=== PATIENT | female | born 1975 | race Caucasian/White ===

== ENCOUNTER 2025-07-24 09:24 | Emergency (ER) | payer BC, SELFPAY ==
--- OUTSIDE RECORDS SUMMARY | 2025-06-12 14:00 | XMS_ITS | Encounter Summary ---
Author Organization [facility] er Address [address] [place] [address] Care Team Providers Care Physical Fitness Trainer Name Role Phone Adela Chan APRN Primary Care Provider Encounter Details DateTypeDepartmentCare Team (Latest Contact Info)Srtzqykrwwu65/05/2025 2:00 PM CSTClinical Support SE Immunization [address] [place], [place] [address] Travel advice encounter (Primary Dx) Social History Tobacco UseTypesPacks/DayYears UsedDateSmoking Tobacco: NeverSmokeless Tobacco: NeverAlcohol UseStandard Drinks/WeekCommentsYes0 (1 standard drink = 0.6 oz pure alcohol)B1300 Health LiteracyAnswerDate RecordedHow often do you need to have someone help you when you read instructions, pamphlets, or other written material from your doctor or pharmacy?Never01/23/2025HC UtilitiesAnswerDate RecordedIn the past 12 months has the [employer], gas, oil, or water [employer] threatened to shut off services in your home?No01/23/2025Humiliation, Afraid, Rape, and Kick questionnaireAnswerDate RecordedWithin the last year, have you been afraid of your partner or ex-partner?No01/23/2025Within the last year, have you been humiliated or emotionally abused in other ways by your partner or ex-partner?No01/23/2025Within the last year, have you been kicked, hit, slapped, or otherwise physically hurt by your partner or ex-partner?No01/23/2025Within the last year, have you been raped or forced to have any kind of sexual activity by your partner or ex-partner?No01/23/2025Social Connection and Isolation Panel AnswerDate RecordedIn a typical week, how many times do you talk on the phone with family, friends, or neighbors?Once a week01/23/2025How often do you get together with friends or relatives?Once a week01/23/2025How often do you attend religious or moravian services?1 to 4 times per year01/23/2025Do you belong to any clubs or organizations such as religious groups, unions, [employer] or athletic rufina ups, or school groups?No01/23/2025How often do you attend meetings of the clubs or organizations you belong to?Patient /18/2025re you , , , , never , or living with a partner? 01/23/2025UDIT-CAnswerDate RecordedQ1: How often do you have a drink containing alcohol?Monthly or less01/23/2025Q2: How many drinks containing alcohol do you have on a typical day when you are drinking?1 or Q3: How often do you have six or more drinks on one occasion?Never01/23/2025Overall Financial Resource Strain (CARDIA)AnswerDate RecordedHow hard is it for you to pay for the very basics like food, housing, medical care, and heating?Not hard at all 01/23/2025PHQ-2AnswerDate RecordedPHQ-9 Total [id number] [place] of Occupational Health - Occupational Stress QuestionnaireAnswerDate RecordedDo you feel stress - tense, restless, nervous, or anxious, or unable to sleep at night because yourmind is troubled all the time - these days?To some extent 01/23/2025Exercise Vital SignAnswerDate RecordedOn average, how many days per week do you engage in moderate to strenuous exercise (like a brisk walk)?2 days 01/23/2025On average, how many minutes do you engage in exercise at this level? 20 min01/23/2025Hunger Vital SignAnswerDate RecordedWithin the past 12 months, you worried that your food would run out before you got the money to buymore. Never true01/23/2025Within the past 12 months, the food you bought just didn't last and you didn't have money to get more.Never true01/23/2025PRAPARE - TransportationAnswerDate RecordedIn the past 12 months, has lack of transportation kept you from medical appointments or from getting medications?No 01/23/2025In the past 12 months, has lack of transportation kept you from meetings, work, or from getting things needed for daily living?No01/23/2025 Housing Stability Vital SignAnswerDate RecordedIn the last 12 months, was there a time when you were not able to pay the mortgage or rent on time?No01/23/2025In the past 12 months, how many times have you moved where you were living?0 01/23/2025t any time in the past 12 months, were you homeless or living in a usp (including now)?No01/23/2025CommentsNoSex and Gender Information ValueDate RecordedSex Assigned at BirthNot on fileLegal GtvGbozwj86/07/2018 7:59 PM CDTGender IdentityNot on fileSexual OrientationNot on filedocumented as of this encounter Progress Notes * Lorelei Schrader RN - 06/12/2025 2:00 PM CST Patient ID: Emilia Alcaraz is a 49 y.o. female. Subjective: Patient comes into the office today for travel consultation. Patients travel destination is [facility] for business. Date of Departure: 06/22/2025 for a length of stay of 7days. Past Medical History: Heart Disease: positive Kidney Disease: negative Lung Disease: positive Diabetes: negative Stomach/GI Disease: negative Mental Health Issuesnegative Fainted/Reacted from Previous Injection: negative Patient is Immunocompromised: No Past Surgical History: Surgical procedure within last 5 years: No Allergies/Adverse Reactions: Seasonal Medications: Current Medications[1] Patient wants traveler???s diarrhea medication: Yes. Counseling given and prescription for azithromycin was [facility]. Patient wants traveler???s anti-malaria medication: Yes Counseling given and prescription for Malarone was [facility]. : Currently /planning to become : no Currently : no Immunizations: The Following immunizations are recommended and agreed to by the patient: Hepatitis A, Influenza, and Typhoid Risk and benefits discussed. VIS sheets given to patient. Safety: [facility] Pantograph Operator reviewed and [facility] health information given to patient. Also, reviewedwater and food precautions while traveling, including prober hand-washing. Reviewed use of appropriate clothing, insect repellent, and sunscreen. Plan: Patient was administered the following vaccines: Hepatitis A, Influenza, and Typhoid Patient verbalized understanding of the information given. Patient was not given the CDC International Certificate of Vaccination. Patient is to call the Immunization nurse with questions or concerns. [1] Current Outpatient Medications: albuterol HFA (Ventolin HFA) 108 (90 Base) MCG/ACT inhaler, Inhale 2 puffs every 4 (four) hours if needed for wheezing or shortness of breath On file., Disp: 8 g, Rfl: 11 amLODIPine (Norvasc) 5 MG tablet, Take 1 tablet (5 mg total) by mouth every night On file, Disp: 90tablet, Rfl: 3 atorvastatin (LIPITOR) 40 MG tablet, TAKE 1 TABLET EVERY NIGHT AT BEDTIME. On file., Disp: 90 tablet, Rfl: 3 atovaquone-proguanil (Malarone) 250-100 MG per tablet, 1 tab a day, same time of day. Start 1-2 days before travel, daily while in malarial area, and for 7 days after leaving area, Disp: 16 tablet, Rfl: 0 azithromycin (Zithromax Z-Domingo) 250 MG tablet, Take 2 tabs (500 mg) by mouth today, then 1 tab (250 mg) daily for 4 days., Disp: 6 tablet, Rfl: 0 azithromycin (Zithromax) 500 MG tablet, Take 1 tab a day , for 3 days ,at the onset of more than 4 diarrheal stools per day or fever, blood, pus mucous in stools. Stop if diarrhea stops., Disp: 3 tablet, Rfl: 0 Cetirizine HCl 10 MG capsule, Take 10 mg by mouth 1 (one) time each day On file., Disp: 90 capsule,Rfl: 3 chlorthalidone (HYGROTON) 50 MG tablet, Take 1 tablet (50 mg total) by mouth every night On file., Disp: 90 tablet, Rfl: 3 fluticasone (FLONASE) 50 MCG/ACT nasal spray, Administer 2 sprays into each nostril 1 (one) time each day On file, Disp: 16 g, Rfl: 5 losartan (Cozaar) 100 MG tablet, Take 1 tablet (100 mg total) by mouth every night On file., Disp: 90 tablet, Rfl: 3 mometasone-formoterol (DULERA 100) 100-5 MCG/ACT inhaler, Inhale 2 puffs 1 (one) time each day Rinse mouth with water after use to reduce aftertaste and incidence of candidiasis. Do not swallow. On file., Disp: 13 g, Rfl: 11 S PROMOTION REPRESENTATIVE documented in this encounter Plan of Treatment DateTypeDepartmentCare Team (Latest Contact Info)Oflynzkcauy02/17/2025 11:00 AM CSTOffice Visit [address] [address] Rubin Vazquez MD [address] [place] [phone] documented as of this encounter Visit Diagnoses Diagnosis Travel advice encounter- Primary documented in this encounter Care Teams Team MemberRelationshipSpecialtyStart DateEnd Date Adela Chan APRN [address] [place] [address] PCP - GeneralFamily Medicine01/18/24documented as of this encounter
[2025-07-24] VITALS (11 sets, daily range): BP systolic 122–156; BP diastolic 78–94; PULSE 81–92; RESP 16; TEMP 36.9; O2SAT 96–99; BMI 31.5
--- NOTE | 2025-07-24 10:03 | CRLHL7_ITS ---
For Patients: As a result of the Cures Act, medical imaging exams and procedure reports are released immediately into your electronic medical record. You may view this report before your referring provider. If you have questions, please contact your health care provider. Indication: Left chest pain. Technique: Chest 2 views. Comparison: None. Findings/Impression: No focal consolidation pleural effusion or pneumothorax. The cardiac silhouette is normal. Dictated by Sabas Borden MD @ 07/24/2025 10:45:37 AM (Electronically Signed)
--- NOTE | 2025-07-24 10:05 | ED.GENADULT ---
HPI - General Adult General Chief complaint: Abdominal Pain Stated complaint: LT sholder and chest pain Time Seen by Provider: 07/24/25 09:25 History of Present Illness HPI narrative: [age] year white female with history of hypertension and on atorvastatin for cholesterol, presents with having a recent head cold, cough congestion. That is gotten better. That was over the last week and half for so. She now feels like she has had some left lower chest wall pain. She notices a little bit of left upper quadrant pain and some shoulder discomfort that is resolved. She has no neck pain no diaphoresis at this time no nausea. She has had a little bit of abdominal pain and this pain hurts in her left lower chest wall area and her upper abdomen when she coughs. She has had no marked fever chills rigors although felt cold last night. No history of coronary artery disease. she is afebrile here today. No leg swelling or edema. No bleeding or clotting problems. Medical chart and history reviewed. Related Data Home Medications ?Medication ?Instructions ?Recorded ?Confirmed amlodipine 5 mg tablet 5 mg PO DAILY 07/24/25 07/24/25 atorvastatin 40 mg tablet 40 mg PO DAILY 07/24/25 07/24/25 chlorthalidone 50 mg tablet 50 mg PO DAILY 07/24/25 07/24/25 erythromycin ethylsuccinate PO 07/24/25 losartan 100 mg tablet (Cozaar) 100 mg PO DAILY 07/24/25 07/24/25 mometasone-formoterol HFA 100 1 inh inhalation BID 07/24/25 07/24/25 mcg-5 mcg/actuation aerosol inhaler (Dulera) Previous Rx's ?Medication ?Instructions ?Recorded prednisone 20 mg tablet 20 mg PO BID #10 tabs 07/24/25 Allergies Allergy/AdvReac Type Severity Reaction Status Date / Time No Known Drug Allergies Allergy Verified 07/24/25 09:30 Review of Systems Status of ROS: Reports: 10 or more systems reviewed and unremarkable except as noted in History and below Exam Narrative: Exam Narrative: Objective: Vital signs look within normal limits other than slightly elevated systolic pressure, afebrile, O2 sat 90% on room air Alert orient x3 no distress No scleral icterus mouth clear neck is supple Chest is clear heart rhythm regular heart murmur Abdomen obese benign mildly tender in her left upper quadrant and she notices some definite pain along her chondral margin. This is the pain she has been experiencing. Extremities are no edema neurologic nonfocal Const: Vital Signs, click to edit/add: Vital Signs - 24 hr 07/24/25 09:32 07/24/25 09:49 07/24/25 09:50 Temperature 98.4 F Pulse Rate 87 87 Pulse Rate [Pulse Oximeter] 91 Respiratory Rate 16 Blood Pressure 152/89 H Blood Pressure [Ri ght Upper Arm] 147/81 H Pulse Oximetry 98 96 96 07/24/25 10:00 07/24/25 10:02 07/24/25 10:15 Temperature Pulse Rate 92 85 88 Pulse Rate [Pulse Oximeter] Respiratory Rate Blood Pressure 156/94 H Blood Pressure [Ri ght Upper Arm] Pulse Oximetry 97 97 96 07/24/25 10:30 07/24/25 10:32 07/24/25 10:45 Temperature Pulse Rate 90 86 81 Pulse Rate [Pulse Oximeter] Respiratory Rate Blood Pressure 131/83 Blood Pressure [Ri ght Upper Arm] Pulse Oximetry 97 98 97 07/24/25 11:00 07/24/25 11:02 07/24/25 11:02 Temperature Pulse Rate 83 83 83 Pulse Rate [Pulse Oximeter] Respiratory Rate Blood Pressure 122/78 122/78 Blood Pressure [Ri ght Upper Arm] Pulse Oximetry 96 99 99 Course Vital Signs Vital signs: Initial Vital Signs Temperature 98.4 F 07/24/25 09:32 Temperature Source Temporal Artery Scan 07/24/25 09:32 Pulse Rate 91 07/24/25 09:32 Respiratory Rate 16 07/24/25 09:32 Blood Pressure 147/81 H 07/24/25 09:32 Blood Pressure Mean 103 07/24/25 09:32 Blood Pressure Position Sitting 07/24/25 09:32 Pulse Oximetry 98 07/24/25 09:32 Vital Signs Temperature 98.4 F 07/24/25 09:32 Pulse Rate 91 07/24/25 09:32 Respiratory Rate 16 07/24/25 09:32 Blood Pressure 147/81 H 07/24/25 09:32 Pulse Oximetry 98 07/24/25 09:32 Temperature 98.4 F 07/24/25 09:32 Pulse Rate 83 07/24/25 11:02 Respiratory Rate 16 07/24/25 09:32 Blood Pressure 122/78 07/24/25 11:02 Pulse Oximetry 99 07/24/25 11:02 Medications Administered Medications: Discontinued Medications Generic Name Dose Route Start Last Admin Trade Name Pino DOMINGUEZ Reason Stop Dose Admin Aspirin 324 mg 07/24/25 10:04 07/24/25 10:08 Aspirin 81 Mg Tab.Chew PO 07/24/25 10:05 324 mg ONCE ONE Administration Prednisone 50 mg 07/24/25 11:06 07/24/25 11:13 Prednisone 10 Mg Tablet PO 07/24/25 11:07 50 mg ONCE ONE Administration Medical Decision Making MDM Narrative Medical decision making narrative: [age] year white female with a history of recent cold and cough with left lower chondral margin tenderness some mild left upper abdominal tenderness and some pain with motion of her left shoulder and neck as if muscular. The patient denies substernal chest pain or pressure. No history of cardiac disease. Her EKG at this time by my independent review shows sinus rhythm no obvious ST changes are some artifact present. Will at this point will get a chest x-ray to rule out pneumonia or other rib injury. Will check some labs to make sure she has no intra-abdominal process or infection. Will check a D-dimer is high sensitivity troponin to rule out acute coronary syndrome. Disposition pending findings above. Patient comfortable plan. Will give her aspirin as well. Addendum 11:00 a.m.: The patient's EKG by my independent review shows sinus rhythm some artifact no obvious ST changes that are significant. Troponin isreassuring, D-dimer is negative. At this point I think a trial of medicine for inflammatory chest wall discomfort status post infection would be appropriate will give her prednisone 50 mg now and then 20 b.i.d. for the next 5 days, start the medicine tomorrow as she will get a tablet today. Light activity, return to see regular doctor next 2-3 days, return to ED sooner problems or concerns. Lab Data Labs: Lab Results 07/24/25 07/24/25 Range/Units 10:04 10:15 WBC 11.32 H (4.50-11.00) K/uL RBC 4.36 (4.00-5.20) m/uL Hgb 12.7 (12.0-16.0) gm/dL Hct 39.0 (33.0-51.0) % MCV 89 (80-100) fL MCH 29 (26-34) pg MCHC 33 (32-36) gm/dL RDW Coeff of Isac 13.7 (11.5-15.5) % Plt Count 427 (140-440) K/uL Neut % (Auto) 61.2 (42.0-72.0) % Lymph % (Auto) 24.2 (20-44) % Stonewall % (Auto) 9.1 (0.0-11.0) % Eos % (Auto) 3.8 (0.0-7.0) % Baso % (Auto) 0.7 (0.0-3.0) % Neut # (Auto) 6.90 (1.7-7.0) K/uL Lymph # (Auto) 2.70 (0.90-2.90) K/uL Stonewall # (Auto) 1.00 H (0.00-0.90) K/UL Eos # (Auto) 0.40 (0.00-0.50) K/uL Baso # (Auto) 0.10 (0.00-0.30) K/uL Abs Immat Gran (auto) 0.10 (0.00-0.30) K/uL Imm/Tot Granulo (auto) 1.0 % D-Dimer Quant (PE/DVT) 0.39 (0.00-0.50) ug/ml Sodium 138 (135-149) mmol/L Potassium 3.2 L (3.6-5.1) mmol/L Chloride 99 (96-114) mmol/L Carbon Dioxide 28 (20-32) mmol/L Anion Gap 11 (7-15) mEq/L BUN 13 (7-30) mg/dL Creatinine 0.5 (0.5-1.5) mg/dL Estimated Creat Clear 139.11 Estimated GFR 113 ml/min Glucose 138 H (60-115) mg/dL Calcium 10.1 (8.4-10.6) mg/dL POC Troponin I High Sensi < 2.9 L (2.9-13.0) pg/mL C-Reactive Protein 4.2 H (0.5-1.0) mg/dL NT-Pro-B Natriuret Pep < 20 (See Note) pg/mL Discharge Plan Discharge Clinical Impression: Acute chest wall pain, Cough, Abdominal pain Patient Disposition: Home, Self-Care Condition: Stable Additional Instructions: Light activity, fluids, prednisone as prescribed. May try some ibuprofen as well. Recheck with regular doctor next 3-5 days, return to ED sooner problems or concerns. Activity Level: Light activity Discharge Diet: Regular Prescriptions: New prednisone 20 mg tablet 20 mg PO BID Qty: 10 0RF No Action erythromycin ethylsuccinate PO Dulera 100-5 mcg/actuation HFA aerosol inhaler 1 inh inhalation BID losartan [Cozaar] 100 mg tablet 100 mg PO DAILY amlodipine 5 mg tablet 5 mg PO DAILY chlorthalidone 50 mg tablet 50 mg PO DAILY atorvastatin 40 mg tablet 40 mg PO DAILY Stand Alone Forms: [employer] Info Instructions
[2025-07-24] MEDS: ASPIRIN 81 MG TAB.CHEW 324 MG PO (10:08)
--- OUTSIDE RECORDS SUMMARY | 2025-07-24 10:20 | XMS_ITS | Encounter Summary ---
Author Organization [facility] er Address [address] [place] [address] Care Team Providers Care Slab Installer Name Role Phone Adela Chan APRN Primary Care Provider Reason for Visit * ReasonOnset DateCommentsRespiratory Scgnvtzc10/17/2025hest Pain07/24/2025 Encounter Details DateTypeDepartmentCare Team (Latest Contact Info)Widmiyakgsa23/17/2025Nurse Triage [place] [address] [place] [address] Adela Chan WAITRESS [address] [place], [place] [address] Social History Tobacco UseTypesPacks/DayYears UsedDateSmoking Tobacco: NeverSmokeless Tobacco: NeverAlcohol UseStandard Drinks/WeekCommentsYes0 (1 standard drink = 0.6 oz pure alcohol)B1300 Health LiteracyAnswerDate RecordedHow often do you need to have someone help you when you read instructions, pamphlets, or other written material from your doctor or pharmacy?Never01/23/2025HC UtilitiesAnswerDate RecordedIn the past 12 months has the electric, gas, oil, or water company threatened to shut off services in your [...] relatives?Once a week01/23/2025How often do you attend mormonism or baptism services?1 to 4 times per year01/23/2025Do you belong to any clubs or organizations such as mormonism groups, unions, fraCodementor or athletic rufina ups, or school groups?No01/23/2025How often do you attend meetings of the clubs or organizations you belong to?Patient czzzbdfe05/18/2025re you , , , , never , [...] heating?Not hard at all 01/23/2025PHQ-2AnswerDate RecordedPHQ-9 Total Fsjwk186Finva hospital [place] of Occupational Health - Occupational Stress QuestionnaireAnswerDate [...] were you homeless or living in a fpc (including now)?No01/23/2025CommentsNoSex and Gender Information ValueDate RecordedSex Assigned at BirthNot on fileLegal ZzoNqxpra59/07/2018 7:59 PM CDTGender IdentityNot on fileSexual OrientationNot on filedocumented as of this encounter Miscellaneous Notes * Telephone Encounter - Sakina Chanel RN - 07/24/2025 8:27 AM CST Reason for Conversation Respiratory Distress Background Patient calls in, had made an appointment in [place] for symptoms and was transferred to mortgage underwriter based on symptoms. Patient reports difficulty breathing, more just pain when I have a deep breath. Sharp pain. Eitherlow left side of the lung of the top of my abdomen. Patient endorses when she woke up early Tuesday morning her chest hurt so badly she thought she was having a heart attack. But then I knew it wasn't, because the pain went away after I took some Tylenol Reports dull pain at rest, 3/10. When taking a deep breath pain is 7/10. Endorses coughing up very little, not enough to where I can spit it out. When asked about radiating pain, patient reported a little bit of pain in her shoulder. Patient advised to go to ED for concerns of radiating chest pain, she verbalized understanding. Advised that she would pack up and head over there right away. Disposition Go to ED Now Reason for Disposition Pain also in shoulder(s) or arm(s) or jaw No Initial Assessment on file. No Additional Information on file. Protocols Used Chest Pain-A-[place] TRICAL ENGINEERING DRAFTSPERSON documented in this encounter Plan of Treatment DateTypeDepartmentCare Team (Latest Contact Info)Nhaieeogdef40/17/2025 11:00 AM CSTOffice Visit [address] [address] Rubin Vazquez MD [address] [place] [phone] documented as of this encounter Visit Diagnoses Not on filedocumented in this encounter Care Teams Team MemberRelationshipSpecialtyStart DateEnd Date Adela Chan APRN [address] [place] [phone] PCP - GeneralFamily Medicine01/18/24documented as of this encounter
--- OUTSIDE RECORDS SUMMARY | 2025-07-24 10:20 | XMS_ITS | Encounter Summary ---
Author Organization [facility] er Address [address] [place] [address] Care Team Providers Care Primary Special Education Teacher Name Role Phone Adela Chan APRN Primary Care Provider Reason for Visit * ReasonOnset DateCommentsMed Uwoldp7806/12/2025 Encounter Details DateTypeDepartmentCare Team (Latest Contact Info)Dpripgwennd93/05/2025Refill [facility] [address] [place] [phone] Franco Skinner MD [address] [place] [phone] Traveler's diarrhea (Primary Dx); Need for malaria prophylaxis; Sinusitis, unspecified chronicity, unspecified location Social History Tobacco UseTypesPacks/DayYears UsedDateSmoking Tobacco: NeverSmokeless Tobacco: NeverAlcohol UseStandard Drinks/WeekCommentsYes0 (1 standard drink = 0.6 oz pure alcohol)B1300 Health LiteracyAnswerDate RecordedHow often do you need to have someone help you when you read instructions, pamphlets, or other written material from your doctor or pharmacy?Never01/23/2025HC UtilitiesAnswerDate RecordedIn the past 12 months has the electric, gas, oil, or water [employer] threatened to shut off services in your [...] relatives?Once a week01/23/2025How often do you attend orthodox or bahai services?1 to 4 times per year01/23/2025Do you belong to any clubs or organizations such as orthodox groups, unions, fraContinuum or athletic rufina ups, or school groups?No01/23/2025How often do you attend meetings of the clubs or organizations you belong to?Patient sofjjcuv70/18/2025re you , , , , never , [...] heating?Not hard at all 01/23/2025PHQ-2AnswerDate RecordedPHQ-9 Total Ogaxr390Finintermountain healthcare [place] of Occupational Health - Occupational Stress QuestionnaireAnswerDate [...] were you homeless or living in a prison (including now)?No01/23/2025CommentsNoSex and Gender Information ValueDate RecordedSex Assigned at BirthNot on fileLegal QwuCkhfrt13/07/2018 7:59 PM CDTGender IdentityNot on fileSexual OrientationNot on filedocumented as of this encounter Plan of Treatment DateTypeDepartmentCare Team (Latest Contact Info)Aboopqnjrrm18/17/2025 11:00 AM CSTOffice Visit [place] [address] [facility] [address] [place] [address] Rubin Vazquez MD [address] [place] [phone] documented as of this encounter Visit Diagnoses Diagnosis Traveler's diarrhea- Primary Infectious diarrhea Need for malaria prophylaxis Sinusitis, unspecified chronicity, unspecified location documented in this encounter Care Teams Team MemberRelationshipSpecialtyStart DateEnd Date Adela Chan, FIELD CROPS HARVEST MACHINE OPERATOR [address] [place] [phone] PCP - GeneralFamily Medicine01/18/24documented as of this encounter
--- OUTSIDE RECORDS SUMMARY | 2025-07-24 10:20 | XMS_ITS | Clinical Summary ---
Author Organization [facility] er Address [address] [place] [address] Care Team Providers Care Patternmaker Metal Name Role Phone Adela Chan APRN Primary Care Provider Allergies Active AllergyReactionsCriticalityNoted FknoEigoznbjOurqfdmk10/08/2021 Rhinorrhea, watery eyes Medications MedicationSigDispense QuantityRefillsLast FilledStart DateEnd DateStatus Cetirizine HCl 10 MG capsule Indications:Seasonal allergiesTake 10 mg by mouth 1 (one) time each day On file. 90 capsule ctive mometasone-formoterol (DULERA 100) 100-5 MCG/ACT inhaler Indications:Mild intermittent asthma without complicationInhale 2 puffs 1 (one) time each day Rinse mouth with water after use to reduce aftertaste and incid ence of candidiasis. Do not swallow. On file. 13 g 1106///ctive losartan (Cozaar) 100 MG tablet Indications:Primary hypertensionTake 1 tablet (100 mg total) by mouth every night On file. 90 tablet //ctive amLODIPine (Norvasc) 5 MG tablet Indications:Primary hypertensionTake 1 tablet (5 mg total) by mouth every night On file 90 tablet /ctive fluticasone (FLONASE) 50 MCG/ACT nasal spray Indications:Seasonal allergiesAdminister 2 sprays into each nostril 1 (one) time each day On file 16 g 506///ctive chlorthalidone (HYGROTON) 50 MG tablet Indications:Primary hypertensionTake 1 tablet (50 mg total) by mouth every night On file. 90 tablet //6Active atorvastatin (LIPITOR) 40 MG tablet Indications:Mixed hyperlipidemiaTAKE 1 TABLET EVERY NIGHT AT BEDTIME. On file. 90 tablet 5Active albuterol HFA (Ventolin HFA) 108 (90 Base) MCG/ACT inhaler Indications:Mild intermittent asthma without complicationInhale 2 puffs every 4 (four) hours if needed for wheezing or shortness of breath On file. 8 g 11001/23//6Active azithromycin (Zithromax) 500 MG tablet Indications:Traveler's diarrheaTake 1 tab a day , for 3 days ,at the onset of more than 4 diarrheal stools per day or fever, blood, pus mucous in stools. Stop if diarrhea stops. 3 tablet 5Active atovaquone-proguanil (Malarone) 250-100 MG per tablet Indications:Need for malaria prophylaxis1 tab a day, same time of day. Start 1-2 days before travel, daily while in malarial area, and for 7 days after leaving area 16 tablet 5Active Active Problems ProblemNoted DateDiagnosed DateEncounter for screening for malignant neoplasm of ruewcy4501/23/2025 Assessment & Plan (01/23/2025 9:12 AM CDT): Mammogram ordered Swelling of both lower moytkzekrrf17/13/2024 Assessment & Plan (01/19/2024 11:53 AM CDT): Start wearing GERALD stockings during the day If swelling increases in lower extremities, will decrease amlodipine Encounter for Papanicolaou smear for cervical cancer vqoeqkgaj28/13/2024 Assessment & Plan (01/19/2024 11:51 AM CDT): Pap & HPV screen completed Visit for annual health zngwoacnyhz66/12/2024Encounter for screening mammogram for malignant neoplasm of ggftgv1101/18/2024 Assessment & Plan (01/19/2024 11:51 AM CDT): Mammogram ordered Seasonal vyeakizek95/12/2024 Assessment & Plan (01/23/2025 9:11 AM CDT): Continue Zyrtec 10 mg daily Continue Fluticasone as needed Assessment & Plan (01/19/2024 11:51 AM CDT): Continue Cetirizine 10 mg daily Continue Flonase as needed Immunization due01/18/2024 Assessment & Plan (01/23/2025 9:12 AM CDT): 2nd shingles vaccine given today Assessment & Plan (01/19/2024 11:52 AM CDT): 1st Shingles vaccine given today Please return in 2 months for 2nd vaccine Venous effsye8401/18/2023Mild intermittent asthma without ycgkdipbteht92/13/2023 Assessment & Plan (01/23/2025 9:13 AM CDT): Asthma is improving with treatment. The patient is experiencing no daytime asthma symptoms. She is experiencing no nighttime asthma symptoms. Medications: no change. Continue Dulera 2 puffs daily Continue Albuterol inhaler as needed Assessment & Plan (01/19/2024 11:54 AM CDT): Asthma is improving with treatment. The patient is experiencing no daytime asthma symptoms. She is experiencing no nighttime asthma symptoms. Medications: continue . Continue Dulera 2 puffs 2 x day Continue Albuterol inhaler as needed Mixed yhthytebxvsycz63/13/2023 Assessment & Plan (01/23/2025 9:10 AM CDT): Lipid abnormalities are improving with treatment. Pharmacotherapy as ordered. Lipids will be reassessed in 1 year. Continue Atorvastatin 40 mg daily Start over the counter fish oil Assessment & Plan (01/19/2024 11:50 AM CDT): Lipid abnormalities are improving with treatment. Pharmacotherapy as ordered. Lipids will be reassessed in 1 year. Continue Atorvastatin 40 mg daily Colon cancer kfsqikfct47/12/2022 Overview (04/19/2022): 04/16/2022: Diverticulosis present. Recheck in 5 years [facility] Obesity (BMI 30-39.9)02/04/2021Metabolic ryqyxoje58/30/6782Wlrdtr40/30/2021Heart murmur, zojmzepm80/03/2021 Overview (01/17/2023): TTE normal 2020, Left ventricular outflow tract murmur, seen cards. If BP well controlled taper down diuretic in future. Type 2 diabetes mellitus without eqthhzuhbpvn04/09/2021 Overview (01/17/2023): January 2023 A1C 5.8 Diet controlled. Assessment & Plan (12/11/2020 9:06 AM CDT): A1c ordered for May 2021, please make lab appt Mjmeprc6711/13/2020 Overview (01/17/2023): 11/13/20 Stop Bang score 3. Sleep Medicine referral. History of poor sleep/snoring, average 6 hours. Home sleep study ordered, not completed. Assessment & Plan (01/08/2021 9:14 AM CDT): Ask patient to look into home AHI testing and send results to Dr. Resendiz. Assessment & Plan (12/11/2020 9:05 AM CDT): Awaiting home testing result and f/u with sleep medicine Dr. Resendiz Primary svtdoubgkvui94/08/2021 Overview (01/17/2023): Well controlled. Amlodipine 5, Losartan 100 and Chlorthalidone 50 Assessment & Plan (01/23/2025 9:11 AM CDT): Hypertension is improving with treatment. Dietary sodium restriction. Weight loss. Regular aerobic exercise. Continue current medications. Blood pressure will be reassessed at the next regular appointment. Continue Losartan 100 mg daily Continue Amlodipine 5 mg daily Continue Chlorthalidone 50 mg daily Assessment & Plan (01/19/2024 11:50 AM CDT): Hypertension is improving with treatment. Continue current medications. Blood pressure will be reassessed at the next regular appointment. Continue Losartan 100 mg daily Continue chlorthalidone 50 mg daily Continue Amlodipine 5 mg daily Start wearing GERALD stockings daily, if swelling increases, we will cut Amlodipine down. Assessment & Plan (01/08/2021 9:15 AM CDT): Hypertension is improving with treatment. Continue current treatment regimen. Blood pressure will be reassessed at the next regular appointment. BP great today at 120/62, asymptomatic. However newly found systolic murmur. Recent baseline ECG possible LVH. Referral to cardiology placed. S/P partial ehikogfycljto92/01/2003 Overview (11/13/2020): Rt thyroid nodule removed [facility] 2002. Needs annual TSH check. Resolved Problems ProblemNoted DateDiagnosed DateResolved DateDyslipidemia (high LDL; low HDL) / Overview (01/17/2023): 11/2020 ASCVD 10yr risk 8.3% Lipitor 40 mg Nontoxic multinodular jzeyjy04 Encounters DateTypeDepartmentCare IeycFvozpwwirpe38/17/2025Nurse Triage [facility] [address] [place] [address] Adela Chan, CARVING MACHINE OPERATOR 06/12/2025 2:00 PM CSTClinical Support SE Immunization [address] [place] [address] Travel advice encounter (Primary Dx)06/12/2025Refill [facility] [address] [place] [address] Franco Skinner MD Traveler's diarrhea (Primary Dx); Need for malaria prophylaxis; Sinusitis, unspecified chronicity, unspecified locationfrom Last 3 Months Immunizations ImmunizationAdministration DatesNext DueCOVID-19, mRNA, LNP-S, PF, 30mcg/0.3mL dose Vzeapl9507/16/2021,11/20/2020,10/30/2020H1N1 Inj07/28/2009Hepatitis A 06/12/2025,12/11/2020INFLUENZA QUADRIVALENT MDV (IM)05/30/2017,06/05/2014 Influenza 6mo-64yrs Quad Preservative Free IM05/04/2022,05/20/2020,06/02/2018, 05/08/2015Influenza, Recombinant, Trivalent, PF, FLUBLOK (egg free)06/12/2025 Influenza, Trivalent, PF05/08/2024Influenza, Ipzeapudzyy05/22/2019,06/07/2016, 06/04/2015,06/05/2014Influenza, injectable, MDCK, preservative free, quadrivalent, 0.5mL dose (Flucelvax)05/04/2023TD Preservative Free12/11/2020, 07/14/2000Td02/03/2004,07/14/2000Tdap02/01/2008Typhoid Tdwrrelrpnd75/05/2025 Zoster Nxjhtngbxoz88/18/2025,01/18/2024 Family History Medical HistoryRelationCommentsHypertensionBrotherLung cancerFatherProstate cancerFatherCOPDMaternal GrandfatherMental illnessMaternal GrandmotherThyroid diseaseMotherHypertensionPaternal GrandfatherProstate cancerPaternal Grandfather StrokePaternal GrandfatherHypertensionPaternal GrandmotherOtherPaternal GrandmothercolitisNo Known ProblemsSisterNo Known ProblemsSon 1No Known Problems Son 2RelationStatusCommentsBrotherAliveFatherDeceasedMaternal Grandfather DeceasedMaternal GrandmotherDeceasedMotherAlivePaternal GrandfatherAlivePaternal GrandmotherAliveSisterAliveSon 1AliveSon 2Alive Social History Tobacco UseTypesPacks/DayYears UsedDateSmoking Tobacco: NeverSmokeless Tobacco: Never Tobacco Cessation:Counseling Given: Not Answered Alcohol UseStandard Drinks/WeekCommentsYes0 (1 standard drink = 0.6 [...] relatives?Once a week01/23/2025How often do you attend amish or christianity services?1 to 4 times per year01/23/2025Do you belong to any clubs or organizations such as amish groups, unions, fraternal or athletic rufina ups, or school groups?No01/23/2025How [...] heating?Not hard at all 01/23/2025PHQ-2AnswerDate RecordedPHQ-9 Total Kahkf956Finmountain west medical center [place] of Occupational Health - Occupational Stress QuestionnaireAnswerDate [...] were you homeless or living in a half-way (including now)?No01/23/2025CommentsNoSex and Gender Information ValueDate RecordedSex Assigned at BirthNot on fileLegal CmhKnjcoq79/07/2018 7:59 PM CDTGender IdentityNot on fileSexual OrientationNot on file Last Filed Vital Signs Vital SignReadingTime TakenCommentsBlood Owzcchmh130/8601/23/2025 8:09 AM CDT Ffcls460401/23/2025 8:09 AM JTVRsoqzaklbin28.3 ??C (97.3 ??F)01/23/2025 8:09 AM CDTRespiratory Szng340701/23/2025 8:09 AM CDTOxygen Zsosvkrvgq35%01/23/2025 8:09 AM CDTInhaled Oxygen Concentration--Aaqauf04.4 kg (175 lb)01/23/2025 8:09 AM CDT Glqsmo987.3 cm (5' 9)01/23/2025 8:09 AM CDTBody Mass Index25.8401/23/2025 8:09 AM CDT Plan of Treatment DateTypeDepartmentCare Team (Latest Contact Info)Tjxxrsisycy51/17/2025 11:00 AM CSTOffice Visit [facility] [address] [place] [phone] [place] [address] [place] [phone] Health MaintenanceDue DateLast DoneCommentsCT Wqiorusesydm30/07/1974FIT-DNA 1975 0338Rsxgrivwtuybw77/07/8105dWCBU48/07/1974Pneumococcal Vaccine: 50+ Years (1 of 2 - PCV)1992COVID-19 Vaccine ( - season)2025 07/16/2021, 11/20/2020, 1Diabetes: Hemoglobin A1C, 01/11/2024, 01/14/2023, Additional history existsDiabetes: Urine Protein Oweptbata43, 01/11/2024, 01/14/2023, Additional history exists Lipid Panel, 01/11/2024, 01/14/2023, Additional history existsDiabetes: Foot Exam, 01/18/2024, 01/17/2023, Additional history odkyajYmgribypv16, 02/16/2024, 04/30/2022 Diabetes: Retinopathy Ghsmytzzx12/01/099084/08/2024, 3Pap Smear , 11/13/2020, 11/13/2020, Additional history exists DTaP,Tdap,and Td Vaccines (3 - Td or Tdap)/01/2021, 02/01/2008, 02/03/2004, Additional history paazymLzzithyncnz39/09/543381/olorectal Cancer Ishbstlmg77/09/2032Zoster JyzmmlmdHrbkvgwwp09/18/2025, 01/18/2024 Influenza TeuycupUdtjgsabw52/05/2025, 05/08/2024, 05/04/2023, Additional history existsHPV VaccinesAged OutNo longer eligible based on patient's age to complete this topic Procedures Procedure NamePriorityDate/TimeAssociated DiagnosisCommentsMAMMOGRAM BREAST SCREENING TOMOSYNTHESIS QJBBPWOASMoheait64/22/2025 8:38 AM CDT Encounter for screening for malignant neoplasm of breast, unspecified screening modality HEMOGLOBIN V7SXjqgmud05/13/2025 8:08 AM CDT Screening for diabetes mellitus LIPID OEUUAVxaknyp21/13/2025 8:08 AM CDT Screening for lipid disorders MICROALBUMIN/CREATININE YIPGKQkutyed61/13/2025 8:07 AM CDT Screening for diabetes mellitus PAP NELEBrodrft66/12/2024 5:05 PM CDT Encounter for Papanicolaou smear for cervical cancer screening from Last 3 Months or Most Recently Relevant to Health Maintenance Results * Mammogram breast screening tomosynthesis bilateral (03/29/2025 8:38 AM CDT) Anatomical RegionLateralityModalityBreastBilateralMammographySpecimen (Source) Anatomical Location / LateralityCollection Method / VolumeCollection Time Received Time Impressions 03/29/2025 9:40 AM CDT BILATERAL BREASTS Negative; no evidence of malignancy. Routine follow-up is recommended in 1 year, or at next clinically-appropriate interval. ASSESSMENT: BI-RADS 1: Final Overall Assessment: Negative Breast Assessment: 1-Negative Breast composition: b-There are scattered areas of fibroglandular density Recommendation: 1000-Routine Screening Mammogram in 1 year CAD REVIEW: Current study was evaluated with a Computer Aided Detection (CAD) system. Narrative 03/29/2025 9:40 AM CDT EXAM DESCRIPTION: MAMMOGRAM BREAST SCREENING TOMOSYNTHESIS BILATERAL INDICATION: 49 y/o ??U. ??Screening for breast cancer. COMPARISON: Comparison made to prior exam(s). FINDINGS: Routine bilateral combination 2D/DBT screening examination including CC and MLO projections. There are scattered areas of fibroglandular density. ??No significant masses, calcifications or other abnormalities are seen. Procedure Note Ian Good MD - 03/29/2025 EXAM DESCRIPTION: MAMMOGRAM BREAST SCREENING TOMOSYNTHESIS BILATERAL INDICATION: 49 y/o U. Screening for breast cancer. COMPARISON: Comparison made to prior exam(s). FINDINGS: Routine bilateral combination 2D/DBT screening examination including CCand MLO projections. There are scattered areas of fibroglandular density. No significantmasses, calcifications or other abnormalities are seen. IMPRESSION: BILATERAL BREASTS Negative; no evidence of malignancy. Routine follow-up is recommended in 1year, or at next clinically-appropriate interval. ASSESSMENT: BI-RADS 1: Final Overall Assessment: Negative Breast Assessment: 1-Negative Breast composition: b-There are scattered areas of fibroglandulardensity Recommendation: 1000-Routine Screening Mammogram in 1 year CAD REVIEW: Current study was evaluated with a Computer Aided Detection (CAD)system. Authorizing ProviderResult TypeResult StatusDanntasneem Chan APRNIMG BI PROCEDURESFinal Result * (ABNORMAL) Hemoglobin A1c (01/18/2025 8:08 AM CDT)ComponentValueRef RangeTest MethodAnalysis TimePerformed AtPathologist SignatureHemoglobin A1C6.1(H)4.0 - 5.6 % A1C01/18/2025 6:04 PM [facility]ATORYComment: Reference Range 4.0-5.6% is for non- adults >=18 yrs <5.6% Non-Diabetic 5.7-6.4% ??Increased risk of Diabetes >=6.5% Indicative of Diabetes <7.0% ADA goal for glycemic control Methodology may not detect all hemoglobin variants which can affect A1c results. Method certified by National Glycohemoglobin Standardization Program. Specimen (Source)Anatomical Location / LateralityCollection Method / Volume Collection TimeReceived TimeBlood (Blood, Venous)01/18/2025 8:08 AM CDT 01/18/2025 5:20 PM CDT Narrative Authorizing ProviderResult TypeResult StatusDanntasneem Chan APRHOULTON REG[facility] BLOOD ORDERABLESFinal ResultPerforming OrganizationAddressCity/State/ZIP CodePhone Number [facility] [address] [place] [address] * (ABNORMAL) Lipid panel (01/18/2025 8:08 AM CDT)ComponentValueRef RangeTest MethodAnalysis TimePerformed AtPathologist BttuvrklyObjpnlmxlku7053 - 199 mg/dL01/18/2025 6:16 PM [facility]ORATORYComment: Recommended by National Cholesterol Education Program (ATP III) -------- Cholesterol Ranges -------- <200 Desirable 200-239 ? Borderline high >=240 High Leepmvrlvohdw430(H)0 - 149 mg/dL01/18/2025 6:16 PM [facility]ORYComment: -------- TRIG Ranges -------- <150 Normal 150-199 ? Borderline high 200-499 ? High >=500 Very high HDL39(L)40 - 250 mg/dL01/18/2025 6:16 PM [facility] Comment: -------- HDL Ranges -------- <40 Low 40-59 ?Normal >=60 Optimal LDL Wzgagbmrfl691 - 99 mg/dL01/18/2025 6:16 PM [facility]ORYComment: -------- LDL Ranges -------- <100 Optimal 100-129 ?Near optimal/above optimal 130-159 ?Borderline high 160-189 ?High >=190 Very high Fasting?Yes01/18/2025 8:08 AM [facility] LABORATORYSpecimen (Source)Anatomical Location / LateralityCollection Method / VolumeCollection TimeReceived FmafFjfyu59/13/2025 8:08 AM CDT01/18/2025 5:17 PM CDT Narrative Authorizing ProviderResult TypeResult StatusAdela Chan APRNLAB BLOOD ORDERABLESFinal ResultPerforming OrganizationAddressCity/State/ZIP CodePhone Number [facility] [address] [place] [phone] * Microalbumin/Creatinine Ratio (01/18/2025 8:07 AM CDT)ComponentValueRef Range Test MethodAnalysis TimePerformed AtPathologist SignatureMicroalbumin, U<6.0 0.0 - 16.6 mg/L01/18/2025 6:18 PM [facility] Creatinine, Fibsl74ut/dL01/18/2025 6:10 PM [facility]ATORYComment: No established reference range. Microalb/Creat Ratiosee below0 - 24 mg/g001/18/2025 6:18 PM [facility]ATORYComment: Microalbumin value outside of detectable range. Unable to report Microalbumin/Creatinine ratio. Consider 24-hour collection if clinically indicated. Specimen (Source)Anatomical Location / LateralityCollection Method / Volume Collection TimeReceived UjsiHwluh51/13/2025 8:07 AM CDT01/18/2025 5:20 PM CDT Narrative Authorizing ProviderResult TypeResult StatusAdela Cahn APRNLAB URINE ORDERABLESFinal ResultPerforming OrganizationAddressCity/State/ZIP CodePhone Number [facility] [address] [place] [phone] * Pap Smear (01/18/2024 5:05 PM CDT)Specimen (Source)Anatomical Location / LateralityCollection Method / VolumeCollection TimeReceived TimeSure Path PAP, ozgobp9001/18/2024 5:05 PM CDT01/19/2024 1:52 PM CDT Narrative [facility] - 01/20/2024 2:49 PM CDT [facility] ? [address] ?[place] [address] ? Patient: ?MARIA L BRIDGET Marie ? Procedure: ? 01/18/2024 17:05 /Age/Sex: ??1975, 48 Y, F ? Received: ?01/19/2024 13:52 ?Accession #: ?? [id number] Billing: ?[id number] ?Patient Location: [facility] ?OFFICE Ordered by: ?? ADELA CHAN APRN ? Attending: ? ADELA CHAN, ? CARVING MACHINE OPERATOR ? C.O.D. CLERK CYTOLOGY FINAL REPORT SPECIMEN: (A) SURE PATH PAP, SCREEN SPECIMEN DESCRIPTION: Cervical Received cloudy specimen in Sure[employer] vial. CLINICAL INFORMATION: LMP: 01/16/2024 SPECIMEN ADEQUACY: Satisfactory for Evaluation. ??No endocervical cells/transformation zone component present. GENERAL CATEGORIZATION: Negative for Intraepithelial Lesion or Malignancy (NILM). INTERPRETATION/RESULTS: Shift in vaginal sandhya suggestive of bacterial vaginosis. PAP Test Disclaimer Cervical cytology is a screening test primarily for squamous cancer and its precursors and has associated false-negative and false-positive results. Regular sampling and follow-up of unexplained clinical signs and symptoms are recommended to minimize the impact of false negative and false positive results. Screened By: BRIAN COELLO (ASCP) Signed By: BEN HUERTA MD <Sign Out Dr. Pettit> Reported: ??01/20/2024 ? Page 1 of 1 Authorizing ProviderResult TypeResult StatusDalexx Chan APRNLAB CYTOLOGY ORDERABLESFinal ResultPerforming OrganizationAddressCity/State/ZIP Code Phone Number [facility] [address] [place] [address] from Last 3 Months or Most Recently Relevant to Health Maintenance Insurance * Guarantor: Bridget Alcaraz TypeRelation to PatientDate of BirthPhone Billing AddressPersonal/DkugqwBxaq02/[birth year][id number] [place] [address] Care Teams Team MemberRelationshipSpecialtyStart DateEnd Date Adela Chan APRN [address] [place] [phone] [facility] - [facility]/24
[2025-07-24 10:28] LABS: Hematocrit* 39.0 % (33.0-51.0); Hemoglobin* 12.7 gm/dL (12.0-16.0); Immature Granulocytes Pct Auto 1.0 %; Mean Corpuscular HGB Conc 33 gm/dL (32-36); Mean Corpuscular Hemoglobin 29 pg (26-34); Mean Corpuscular Volume 89 fL (80-100); RDW Coefficient of Variation % 13.7 % (11.5-15.5); Red Blood Count* 4.36 m/uL (4.00-5.20); White Blood Count* 11.32 K/uL (4.50-11.00)
[2025-07-24 10:32] LABS: Immature Granulocytes Abs Auto 0.10 K/uL (0.00-0.30); Lymphocytes Absolute Auto 2.70 K/uL (0.90-2.90); Slide Review Reflex No
[2025-07-24 10:41] LABS: Chloride* 99 mmol/L (96-114); Potassium* 3.2 mmol/L (3.6-5.1); Sodium* 138 mmol/L (135-149)
[2025-07-24 10:44] LABS: Blood Urea Nitrogen* 13 mg/dL (7-30); Creatinine* 0.5 mg/dL (0.5-1.5); Est. Creatinine Clearance* 139.11; Estimated Glomerular Filt Rate 113 ml/min
[2025-07-24 10:45] LABS: Anion Gap 11 mEq/L (7-15); Calcium* 10.1 mg/dL (8.4-10.6); Carbon Dioxide* 28 mmol/L (20-32); Glucose* 138 mg/dL (60-115)
[2025-07-24 10:48] LABS: D Dimer Quantitative* 0.39 ug/ml (0.00-0.50)
[2025-07-24 10:56] LABS: NT Pro B Type NatriureticPept* < 20 pg/mL (See Note)
== END 2025-07-24 11:20 | disposition home or self-care (01) ==
PROVIDERS: Emergency Provider Family Medicine
DX: R07.89 Other chest pain (principal); R05.1 Acute cough; R10.12 Left upper quadrant pain
CPT/HCPCS: 36415; 71046; 80048; 83880; 84484; 85025; 85379; 86140; 93005; 99284; 99285; A9270; J7512